=== PATIENT | female | born 1945 | race Caucasian/White ===

== ENCOUNTER 2018-12-04 23:22 | Emergency (ER) | payer MEDICARE, OTHER ==
--- NOTE | 2018-12-04 23:26 | ED Physician Documentation ---
History of Present Illness - Stated complaint Stated Complaint: SOA - History obtained from History obtained from: Patient - History of Present Illness Timing: Prior to arrival - Additonal information Additional information: Patient is a 73-year-old female with history of hypertension, CHF, and diabetes presenting with shortness of breath that began shortly prior to arrival while swimming with her family.Patient reports that she is compliant with all home medications except for her diuretics recently as she was traveling to [place] and did not want to take them while on vacation. Patient denies significant weight gain or fluid gain. Patient describes worsening shortness of breath over the last several days with initial dry cough that is now productive. Patient denies fever. Patient also denies chest pain, abdominal pain, urinary or stool changes, as well as vomiting.No other improving or worsening factors noted. Review of Systems Constitutional: denies: Fever Cardiac: denies: Chest pain / pressure Respiratory: reports: Dyspnea, Cough PD PAST MEDICAL HISTORY - Past Medical History Cardiovascular: Congestive heart failure Respiratory: Pneumonia Endocrine/Autoimmune: Type 1 diabetes - Past Surgical History Past Surgical History: Yes HEENT: Cataracts - Present Medications Home Medications: Ambulatory Orders Medication Instructions Recorded Confirmed Aspirin [Aspir 81] 81 mg PO DAILY 08/19/13 08/19/13 Carvedilol 0 mg PO BID 08/19/13 08/19/13 Insulin Glargine [Lantus] 16 unit SUBQ HS 08/19/13 08/19/13 Spironolactone [Aldactone] 0 mg PO DAILY 08/19/13 08/19/13 Tolterodine Tartrate [Detrol] 1 mg PO DAILY 08/19/13 08/19/13 glipiZIDE [Glucotrol] 0 mg PO 0730 08/19/13 08/19/13 - Allergies Allergies/Adverse Reactions: Allergies Allergy/AdvReac Type Severity Reaction Status Date / Time [id number]-[id number] Reductase Allergy Anaphylaxis Verified 12/04/18 23:31 Inhibitor Sulfa (Sulfonamide Allergy vomiting Verified 12/04/18 23:31 Antibiotics) - Social History Does the pt smoke?: No Smoking Status: Never smoker Does the pt drink ETOH?: No Does the pt have substance abuse?: No - POLST Patient has POLST: No PD ED PE NORMAL - Vitals Vital signs reviewed: Yes - General General: Alert and oriented X 3, No acute distress, Well developed/nourished - HEENT HEENT: Atraumatic - Cardiac Cardiac: RRR, No murmur - Respiratory Respiratory: No respiratory distress. No: Clear bilaterally (Crackles and rhonchorous throughout. No wheezing. Slightly short of breath when speaking, but otherwise unlabored. Able to speak in full sentences.) - Abdomen Abdomen: Soft, Non tender, Non distended - Derm Derm: Normal color, Warm and dry, No rash - Extremities Extremities: No deformity, No tenderness to palpate, No edema - Neuro Neuro: Alert and oriented X 3, No motor deficit, No sensory deficit - Psych Psych: Normal mood, Normal affect Results - Vitals Vitals: Vital Signs - 24 hr 12/04/18 12/04/18 12/05/18 23:28 23:39 00:02 Temperature 36.9 C Heart Rate 72 72 Respiratory 24 22 Rate Blood Pressure 174/77 H O2 Saturation 85 L 96 12/05/18 12/05/18 00:37 00:54 Temperature Heart Rate 56 L 54 L Respiratory 19 24 Rate Blood Pressure 120/77 O2 Saturation 98 95 Oxygen O2 Source Room air Oxygen Flow Rate 0 - EKG (time done) 2331 Rate: Rate (enter#) (66) Rhythm: NSR Intervals: Prolonged QT, LBBB Other comments: Other comments (PVCS) - Labs Labs: Laboratory Tests 12/04/18 12/04/18 12/04/18 23:30 23:30 23:30 WBC 10.6 RBC 4.83 Hgb 13.6 Hct 40.9 MCV 84.6 MCH 28.1 MCHC 33.3 RDW 13.3 Plt Count 311 MPV 8.7 Neut # (Auto) 5.8 Lymph # (Auto) 3.4 Pima # (Auto) 0.7 Eos # (Auto) 0.5 Baso # (Auto) 0.1 Absolute Nucleated RBC 0.01 Nucleated RBC % 0.1 Sodium 138 Potassium 3.7 Chloride 103 Carbon Dioxide 26 Anion Gap 9.0 BUN 21 H Creatinine 0.9 Estimated GFR (MDRD) 61 L Glucose 150 H Lactic Acid Calcium 8.8 Total Bilirubin 0.5 AST 26 ALT 23 Alkaline Phosphatase 50 Troponin I < 0.04 B-Natriuretic Peptide Total Protein 6.8 Albumin 3.8 Globulin 3.0 Albumin/Globulin Ratio 1.3 Lipase 25 12/04/18 12/05/18 23:45 00:06 WBC RBC Hgb Hct MCV MCH MCHC RDW Plt Count MPV Neut # (Auto) Lymph # (Auto) Pima # (Auto) Eos # (Auto) Baso # (Auto) Absolute Nucleated RBC Nucleated RBC % Sodium Potassium Chloride Carbon Dioxide Anion Gap BUN Creatinine Estimated GFR (MDRD) Glucose Lactic Acid 1.1 Calcium Total Bilirubin AST ALT Alkaline Phosphatase Troponin I B-Natriuretic Peptide 185 H Total Protein Albumin Globulin Albumin/Globulin Ratio Lipase PD MEDICAL DECISION MAKING - ED course Complexity details: reviewed results, re-evaluated patient, considered dusty gray, d/w patient, d/w family ED course: Most concerning for CHF exacerbation given Reported symptoms, hypoxia upon arrival, exam, noncompliance with diuretics, but also consider pneumonia particularly given report of productive cough although without fever, as well as ACS, myocardial infarction, unstable angina, PE, although feel much less likely given lack of chest pain. Do not feel patient requires aspirin or other medications at this time except for IV Lasix to address CHF exacerbation.Obtained chest x-ray which found evidence of mild pulmonary edema. Screening lab work and EKG also obtained. EKG Does reflect left bundle branch block and prolonged QT, but no other signs of acute ischemia. Troponin negative. Again, have low suspicion for cardiac etiology given patient's lack of chest complaints and pain. Other screening lab work returned within normal limits except for mild elevation of BNP, which again reflects likely CHF component.Patient urinated significant amounts while in the ED and had market improvement of shortness of breath. Patient was able to be titrated off of oxygen and remained in the mid 90s on room air. later clarified that patient has likely been off of diuretics for several weeks. Discussed results and recommendations with patient and family including ability to go home tonight but to reinstitute diuretics tomorrow, as well as strict return precautions, other supportive cares, and appropriate follow-up with primary care physician later this week. All voiced understanding and are comfortable with discharge pl an. Departure - Departure Disposition: Home, Self Care Clinical Impression: Congestive heart failure Qualifiers: Heart failure type: unspecified Heart failure chronicity: acute on chronic Qualified Code(s): I50.9 - Heart failure, unspecified Condition: Good Instructions: ED CHF General Follow-Up: your,doctor [Other] - Within 3 Days Comments: Please continue all home medications as previously instructed including furosemide. Please follow-up with your primary care physician in next 2 to 3 days and return to ED sooner if expands worsening symptoms or other concerns.
[2018-12-04] MEDS ORDERED: FUROSEMIDE 40 MG/4 ML VIAL IVP STA (23:44)
[2018-12-04 23:53] LABS: BASOPHILS # (AUTO) 0.1 10^3/uL (0.0-0.1); BASOPHILS % (AUTO) 1.2 %; EOSINOPHILS # (AUTO) 0.5 10^3/uL (0.0-0.7); EOSINOPHILS % (AUTO) 4.9 %; HGB - HEMOGLOBIN 13.6 g/dL (12.0-16.0); LYMPHOCYTES # (AUTO) 3.4 10^3/uL (1.5-3.5); LYMPHOCYTES % (AUTO) 32.2 %; MEAN CORPUSCULAR HEMOGLOBIN 28.1 pg (27.0-31.0); MEAN CORPUSCULAR HGB CONC 33.3 g/dL (32.0-36.0); MEAN CORPUSCULAR VOLUME 84.6 fL (81.0-99.0); MEAN PLATELET VOLUME 8.7 fL (7.9-10.8); MONOCYTES # (AUTO) 0.7 10^3/uL (0.0-1.0); MONOCYTES % (AUTO) 6.6 %; NEUTROPHILS # (AUTO) 5.8 10^3/uL (1.5-6.6); NEUTROPHILS % (AUTO) 55.1 %; PLT - PLATELET COUNT 311 10^3/uL (130-450); RED BLOOD COUNT 4.83 10^6/uL (4.20-5.40); RED CELL DISTRIBUTION WIDTH 13.3 % (12.0-15.0); WHITE BLOOD COUNT 10.6 x10^3/uL (4.8-10.8)
[2018-12-05 00:06] LABS: ALBUMIN 3.8 g/dL (3.2-5.5); ALBUMIN/GLOBULIN RATIO 1.3 (1.0-2.2); BILIRUBIN,TOTAL 0.5 mg/dL (0.2-1.0); CALCIUM 8.8 mg/dL (8.5-10.3); CREATININE 0.9 mg/dL (0.4-1.0); TOTAL PROTEIN 6.8 g/dL (6.7-8.2)
--- NOTE | 2018-12-05 00:10 | XRAY Report ---
Reason: chest pain Procedure Date: 12/04/2018 Accession Number: [id number] / [id number] Procedure: XR - Chest 1 View X-Ray CPT Code: 38476 FULL RESULT: EXAM: CHEST RADIOGRAPHY EXAM DATE: 12/04/2018 11:56 PM. CLINICAL HISTORY: Chest pain. COMPARISON: None. TECHNIQUE: 1 view. FINDINGS: Lungs/Pleura: Pulmonary venous distention with diffuse hazy lung opacities. No definite pleural effusion or pneumothorax. Mediastinum: Within exam limitations, the cardiomediastinal contour is normal. Other: None. IMPRESSION: Mild pulmonary edema. RADIA
[2018-12-05 01:03] VITALS: BP 133/52
== END 2018-12-05 01:14 | disposition home or self-care (01) ==
LOC: ED 23:22
DX: I11.0 Hypertensive heart disease with heart failure (principal); I50.1 Left ventricular failure, unspecified; R09.02 Hypoxemia; T50.1X6A Underdosing of loop [high-ceiling] diuretics, initial encounter; Z91.128 Patient's intentional underdosing of medication regimen for other reason; I49.3 Ventricular premature depolarization; I45.81 Long QT syndrome; I44.7 Left bundle-branch block, unspecified; E10.9 Type 1 diabetes mellitus without complications; Z79.4 Long term (current) use of insulin; Z79.82 Long term (current) use of aspirin
CPT/HCPCS: 36415; 71045; 80053; 83605; 83690; 83880; 84484; 85025; 87040; 93005; 96374; 99283; 99284

== ENCOUNTER 2019-09-25 16:46 | Outpatient (CLI) | payer MEDICARE, OTHER ==
--- NOTE | 2019-09-26 07:05 | Ultrasound Report ---
Reason: LEFT LEG PAIN Procedure Date: 09/25/2019 Accession Number: [id number] / [id number] Procedure: US - Duplex Ext Veins Left CPT Code: Final Report FULL RESULT: EXAM: LEFT LOWER EXTREMITY VENOUS ULTRASOUND EXAM DATE: 09/25/2019 05:10 PM. CLINICAL HISTORY: LEFT LEG PAIN. COMPARISON: None. TECHNIQUE: Real-time sonographic vascular imaging was performed by the merchant banker through the lower extremity utilizing both color-flow and Doppler spectral analysis. Multiple eligibility services representative static images were saved for review. FINDINGS: Common Femoral Vein (CFV): Normal. CFV-GSV Junction: Normal. Profunda Femoral Vein (PFV): Normal. Femoral Vein (FV) Prox: Normal. Femoral Vein (FV) Mid: Normal. Femoral Vein (FV) Dist: Normal. Popliteal Vein: Normal. Posterior Tibial Veins: Normal. Peroneal Veins: Normal. Contralateral Side CFV: Normal. Other: None. IMPRESSION: No evidence for deep venous thrombosis. RADIA
== END 2019-09-25 16:47 | disposition home or self-care (01) ==
LOC: DI 16:46
PROVIDERS: ATTEND Internal Medicine
DX: M79.605 Pain in left leg (principal)

== ENCOUNTER 2020-02-05 16:42 | Outpatient (CLI) | payer MEDICARE, OTHER ==
--- NOTE | 2020-02-05 17:52 | XRAY Report ---
PROCEDURE: Foot 3 View LT INDICATIONS: LT FOOT PAIN FROM FALL TECHNIQUE: 3 views of the foot were acquired. COMPARISON: None FINDINGS: Bones: No dislocations. No suspicious bony lesions. There is a diagonal mildly distorted and disp laced fracture involving the fifth metatarsal bone over its distal two thirds. Soft tissues: No tibiotalar joint effusion. Achilles tendon appears normal. IMPRESSION: Acute appearing fifth metatarsal diaphyseal fracture. Reviewed by: Ren Wong MD on 02/05/2020 5:50 PM PDT Approved by: Ren Wong MD on 02/05/2020 5:50 PM PDT Station ID: [id number]
--- NOTE | 2020-02-05 17:53 | XRAY Report ---
PROCEDURE: Mild osteoarthritic change, no trauma found. INDICATIONS: LT FOOT PAIN FROM FALL TECHNIQUE: 3 views of the ankle were acquired. COMPARISON: None FINDINGS: Bones: No fractures or dislocations. Ankle mortise is normally aligned. No suspicious bony lesions . Soft tissues: No tibiotalar joint effusion. Achilles tendon appears normal. IMPRESSION: Mild osteoarthritis, no trauma found. Reviewed by: Ren Wong MD on 02/05/2020 5:51 PM PDT Approved by: Ren Wong MD on 02/05/2020 5:51 PM PDT Station ID: [id number]
== END 2020-02-05 16:43 | disposition home or self-care (01) ==
LOC: DI 16:42
PROVIDERS: ATTEND Internal Medicine
DX: S92.352A Displaced fracture of fifth metatarsal bone, left foot, initial encounter for closed fracture (principal); M19.072 Primary osteoarthritis, left ankle and foot

== ENCOUNTER 2020-03-22 07:28 | Outpatient (CLI) | payer MEDICARE, OTHER ==
--- NOTE | 2020-03-22 15:50 | XRAY Report ---
PROCEDURE: Foot 3 View LT INDICATIONS: LEFT FOOT FRACTURE TECHNIQUE: 3 views of the foot were acquired. COMPARISON: Prior trauma plain films dated 02/05/2020 FINDINGS: Bones: No previously unidentified fractures or dislocations. No suspicious bony lesions. The long diagonal fracture through the fifth metatarsal diaphysis has healed distally and over its proximal as pect osseous union between the fracture plane is not established. Mild offset is associated with this partially united fracture. Soft tissues: No tibiotalar joint effusion. Achilles tendon appears normal. IMPRESSION: Fracture or malalignment but united at its distal half, the proximal half of the long diagonal diaphy seal fracture plane is not united. Moderate malalignment. Reviewed by: Ren Wong MD on 03/22/2020 3:49 PM PDT Approved by: Ren Wong MD on 03/22/2020 3:49 PM PDT Station ID: [id number]
== END 2020-03-22 07:29 | disposition home or self-care (01) ==
LOC: DI.WCP 07:28
PROVIDERS: ATTEND Physician Assistant
DX: S92.352G Displaced fracture of fifth metatarsal bone, left foot, subsequent encounter for fracture with delayed healing (principal)

== ENCOUNTER 2022-03-30 14:04 | Emergency (ER) | payer MEDICARE, OTHER ==
[2022-03-30 14:18] VITALS: BP 138/57
--- NOTE | 2022-03-30 15:31 | XRAY Report ---
PROCEDURE: Ankle 3 View RT INDICATIONS: Trauma TECHNIQUE: 3 views of the ankle were acquired. COMPARISON: None FINDINGS: Bones: No fractures or dislocations. Ankle mortise is normally aligned. No suspicious bony lesions . Soft tissues: No tibiotalar joint effusion. Achilles tendon appears normal. IMPRESSION: Intact right ankle. Reviewed by: Kimberly Chong MD on 03/30/2022 3:30 PM PDT Approved by: Kimberly Chong MD on 03/30/2022 3:30 PM PDT Station ID: [id number]
--- NOTE | 2022-03-30 15:32 | XRAY Report ---
PROCEDURE: Knee 4 View RT INDICATIONS: Trauma TECHNIQUE: 4 views of the right knee(s) were acquired. COMPARISON: None. FINDINGS: Bones: No fractures or dislocations. Mild medial compartment joint space loss. No suspicious bony l esions. Soft tissues: No joint effusion. No suspicious soft tissue calcifications. IMPRESSION: Intact right knee. Reviewed by: Kimberly Chong MD on 03/30/2022 3:31 PM PDT Approved by: Kimberly Chong MD on 03/30/2022 3:31 PM PDT Station ID: [id number]
--- NOTE | 2022-03-30 16:44 | ED Physician Documentation ---
History of Present Illness - Stated complaint Stated Complaint: RT LEG PX - Chief complaint Chief Complaint: Trauma Ext - Additonal information Additional information: Patient is 76-year-old female presenting to the emergency department with right low back and right leg pain. Reports pain ongoing for greater than 1 week. has had multiple falls at home where her "leg goes out on me". Reports shooting pain down her back and up her leg. Reports that she is uncertain whether or not she may have hit her head on any of her previous falls. is only recently begun using a cane to help with her ambulation. Denies anticoagulating medications but does report is on a regular aspirin. Denies any history of blood clots, recent travel, long periods of immobility. Reports contacted her primary care doctor's office today and was told by one of the nursing staff to come to the emergency department. Reports using Motrin at home with minimal symptomatic relief. Denies any fever, chills, chest pain, heart palpitations, shortness of breath, abdominal pain, nausea, vomiting, diarrhea, constipation. Review of Systems Ten Systems: 10 systems reviewed and negative Constitutional: denies: Fever Eyes: denies: Loss of vision Ears: denies: Loss of hearing Nose: denies: Rhinorrhea / runny nose Throat: denies: Dental pain / toothache Cardiac: denies: Chest pain / pressure Respiratory: denies: Dyspnea GI: denies: Abdominal Pain : denies: Dysuria Musculoskeletal: reports: Back pain PD PAST MEDICAL HISTORY - Past Medical History Cardiovascular: Congestive heart failure Respiratory: Pneumonia Endocrine/Autoimmune: Type 1 diabetes GI: None CRIMPER OPERATOR: None : None Psych: None Musculoskeletal: None - Past Surgical History Past Surgical History: Yes HEENT: Cataracts - Present Medications Home Medications: Ambulatory Orders Medication Instructions Recorded Confirmed Aspirin [Aspir 81] 81 mg PO DAILY 08/19/13 08/19/13 Insulin Glargine [Lantus] 16 unit SUBQ HS 08/19/13 08/19/13 Spironolactone [Aldactone] 0 mg PO DAILY 08/19/13 08/19/13 Tolterodine Tartrate [Detrol] 1 mg PO DAILY 08/19/13 08/19/13 carvediloL [Carvedilol] 0 mg PO BID 08/19/13 08/19/13 glipiZIDE [Glucotrol] 0 mg PO 0730 08/19/13 08/19/13 Acetaminophen [Pain Relief] 650 mg PO Q8HR #30 tab 03/30/22 Lidocaine Patch 5% [Lidoderm Patch] 1 patch TOP DAILY PRN #10 patch 03/30/22 - Allergies Allergies/Adverse Reactions: Allergies Allergy/AdvReac Type Severity Reaction Status Date / Time [id number]-EZZ-QhK Reductase Allergy Anaphylaxis Verified 03/30/22 14:18 Inhibitor [Vnkbwby-Ebq-Epk Reductase Inhibitor] Sulfa (Sulfonamide Allergy vomiting Verified 03/30/22 14:18 Antibiotics) - Social History Does the pt smoke?: No Smoking Status: Never smoker Does the pt drink ETOH?: No Does the pt have substance abuse?: No - Immunizations Immunizations are current?: Yes - POLST Patient has POLST: No PD ED PE NORMAL - Vitals Vital signs reviewed: Yes - General General: Alert and oriented X 3, No acute distress, Well developed/nourished - HEENT HEENT: Atraumatic, PERRL, EOMI, Ears normal, Moist mucous membranes - Neck Neck: Supple, no meningeal sign - Cardiac Cardiac: RRR, No gallop, Strong equal pulses - Respiratory Respiratory: No respiratory distress - Abdomen Abdomen: Normal bowel sounds, Non tender - Back Back: No CVA TTP, No spinal TTP - Derm Derm: Normal color - Extremities Extremities: No deformity, Other (Patient reports some generalized pain and swelling around her right ankle. Also endorses for pain and tenderness at the knee and hip.) Results - Vitals Vitals: Vital Signs - 24 hr 03/30/22 14:13 Temperature 36.4 C L Heart Rate 66 Respiratory 18 Rate Blood Pressure 138/57 H O2 Saturation 99 Oxygen O2 Source Room air PD MEDICAL DECISION MAKING - ED course Complexity details: reviewed results, d/w patient ED course: Patient 76-year-old female presenting to the emergency department with low back pain, right leg pain as well as frequent falls due to her right leg "going out from under me". CT head nonacute. X-rays of the knee and ankle nonacute. Patient did have some soft tissue swelling and tenderness to the knee and ankle. Additionally had some right low paraspinal back muscle tenderness. No point tenderness to the spine itself was appreciated on exam. Patient had normal strength and normal reflexes in her lower extremities. Was given acetaminophen and a Lidoderm patch here in the emergency department. Offered walker which she declined. Ankle-brachial index was obtained which was Right side 1.2, left side 1.37. Patient has low risk for lower extremity blood clot and overall her symptoms are far more consistent with sciatica, possibly secondary to lower back degenerative disc disease. At this time will discharge for follow-up with primary care. Patient instructed in the use of both acetaminophen, ibuprofen and Lidoderm patches for pain control. Otherwise clear return precautions and follow-up instructions given prior to discharge. Departure - Departure Disposition: 01 Home, Self Care Clinical Impression: Ankle injury, Knee injury, Lower back pain, Falls frequently Prescriptions: Acetaminophen [Pain Relief] 650 mg PO Q8HR #30 tab Lidocaine Patch 5% [Lidoderm Patch] 1 patch TOP DAILY PRN #10 patch PRN Reason: pain
[2022-03-30] MEDS ORDERED: ACETAMINOPHEN 325 MG TABLET PO STA (17:04)
[2022-03-30] MEDS ORDERED: LIDOCAINE PATCH 5% TOP STA (17:04)
--- NOTE | 2022-03-30 17:48 | CT Report ---
PROCEDURE: HEAD WO INDICATIONS: Falls TECHNIQUE: Noncontrast 4.5 mm thick angled axial sections acquired from the foramen magnum to the vertex. For r adiation dose reduction, the following was used: automated exposure control, adjustment of mA and/or kV according to patient size. COMPARISON: None. FINDINGS: Image quality: Excellent. CSF spaces: Basal cisterns are patent. No extra-axial fluid collections. Ventricles are normal in size and shape. Brain: No midline shift. No intracranial masses or hemorrhage. No area of hypodensity in a vascula r distribution to suggest acute infarction. 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 Age-related parenchymal loss. Skull and face: Calvarium and visualized facial bones are intact, without suspicious lesions. Sinuses: Visualized sinuses and mastoids are clear. IMPRESSION: No acute intracranial abnormality. Reviewed by: Dieudonne Manjarrez MD on 03/30/2022 5:46 PM PDT Approved by: Dieudonne Manjarrez MD on 03/30/2022 5:46 PM PDT Station ID: [id number]
== END 2022-03-30 18:17 | disposition home or self-care (01) ==
LOC: ED 14:04
DX: S99.911A Unspecified injury of right ankle, initial encounter (principal); S89.92XA Unspecified injury of left lower leg, initial encounter; W19.XXXA Unspecified fall, initial encounter; M54.50 Low back pain, unspecified; E10.9 Type 1 diabetes mellitus without complications; Z79.4 Long term (current) use of insulin; Z91.81 History of falling
CPT/HCPCS: 70450; 73564; 73610; 99282; 99284; A9270

== ENCOUNTER 2024-10-09 11:32 | Inpatient (IN) ==
--- NOTE | 2024-10-09 11:58 | ED Physician Documentation ---
History of Present Illness Stated complaint Stated Complaint: SYNCOPE/LAC Chief complaint Chief Complaint: Neuro History obtained from History obtained from: Patient History of Present Illness Timing: Prior to arrival Additonal information Additional information: Patient is a 78-year-old female with past medical history of CHF presenting to the emergency department after a syncopal episode she notes she was playing a great groceries when she fell backwards and hit her head. Patient believes she lost consciousness and called the ambulance. Patient had no chest pain or shortness of breath she notes she has been feeling very dizzy recently and has here about 3 days ago for similar symptoms. She had a stable workup at that time with slightly elevated high sensitivity troponin and was discharged home. She notes her insulin had been discontinued recently and she has been feeling dizzy and off with this medication being discontinued. She feels she has had some recurrent falls while at home. She has no nausea or vomiting today she had sustained a laceration to her head from her fall and has some pain to her right shoulder and right leg after her injury. Her heard her fall while she was putting groceries away. In the room patient is ANO x 3 she seems to be answering questions appropriately but occasionally seems to be slurring her words. Patient is not on blood thinners, unsure how long patient was passed out for. No previous history of stroke unsure of pateint's baseline as she presents independently to the ED. [place] Coma Scale Assess Eye opening: Spontaneous Verbal response: Oriented Motor response: Obeys Commands Total score: 15 Meds/Allgy Home Medications Ambulatory Orders Medication Instructions Recorded Confirmed aspirin 81 mg tablet,delayed 81 mg PO DAILY 08/19/13 08/19/13 release (Aspir-) carvedilol 3.125 mg tablet 0 mg PO BID 08/19/13 08/19/13 glipizide 5 mg tablet 0 mg PO 0730 08/19/13 08/19/13 insulin glargine 100 unit/mL 16 unit subcut HS 08/19/13 08/19/13 subcutaneous solution (Lantus U-100 Insulin) spironolactone 25 mg tablet 0 mg PO DAILY 08/19/13 08/19/13 tolterodine 1 mg tablet (Detrol) 1 mg PO DAILY 08/19/13 08/19/13 acetaminophen 650 mg 650 mg PO Q8HR #30 tabs 03/30/22 tablet,extended release (Pain Relief (acetaminophen)) lidocaine 5 % topical patch 1 patch topical DAILY PRN pain #10 03/30/22 patches Allergies Allergies Allergy/AdvReac Type Severity Reaction Status Date / Time Ycpqmyf-DYN-PuN Reductase Allergy Anaphylaxis Verified 10/06/24 14:55 Inhibitor (Cpqpmxa-Rye-Sce Reductase Inhibitor) Sulfa (Sulfonamide Allergy vomiting Verified 10/06/24 14:55 Antibiotics) PFSH Active Problems All Active Problems (Updated 10/09/24 @ 19:20 by Annabella Diamond PA-C) Laceration (Acute) Head injury (Acute) Syncope (Acute) Congestive heart failure (Acute) Social History Social History Smoking Status: Never smoker Relationship: Do you feel safe in your home environment?: Yes Suffered physical, verbal, emotional, or financial abuse?: No History of Abuse: No POLST Patient has POLST: No Exam Constitutional no apparent distress Patient does appear to be slurring her words she is A & O x 3 but unsure of her baseline in speech, no history of HENMT Laceration noted to left eyebrow no significant swelling mild bleeding in place Eyes PERRL, EOMs intact bilaterally and conjunctivae normal Neck/C-Spine visual inspection normal Lymph no lymphadenopathy noted Chest inspection of chest normal and palpation of chest normal Respiratory breath sounds equal bilaterally, normal respiratory effort and clear to auscult ation bilaterally Results Vitals Vitals: Vital Signs - 24 hr 10/09/24 11:33 10/09/24 11:39 10/09/24 13:39 Temperature 36.7 C Temperature Source Oral Pulse Rate 88 59 L Respiratory Rate 16 13 20 Blood Pressure 153/98 H 142/90 H O2 Saturation 100 97 99 O2 Source Room air Room air Pain Intensity 8 10/09/24 15:00 10/09/24 16:33 10/09/24 18:27 Temperature Temperature Source Pulse Rate 60 60 61 Respiratory Rate 17 16 15 Blood Pressure 162/93 H 147/71 H 172/83 H O2 Saturation 98 97 95 O2 Source Room air Room air Room air Pain Intensity 0 10/09/24 20:41 10/09/24 21:05 Temperature Temperature Source Pulse Rate 67 61 Respiratory Rate 16 16 Blood Pressure 165/114 H 132/74 H O2 Saturation 96 93 O2 Source Room air Room air Pain Intensity Oxygen O2 Source Room air Labs Labs: Laboratory Tests 10/09/24 10/09/2410/09/25 11:55 14:14 16:34 WBC 7.5 RBC 4.47 Hgb 12.8 Hct 39.7 MCV 88.8 MCH 28.6 MCHC 32.2 RDW 13.2 Plt Count 229 MPV 9.8 Neut # (Auto) 4.9 Lymph # (Auto) 1.7 [place] # (Auto) 0.6 Eos # (Auto) 0.2 Baso # (Auto) 0.0 Absolute Nucleated RBC 0.00 Nucleated RBC % 0.0 PT 13.3 H INR 1.2 Sodium 142 Potassium 3.8 Chloride 110 Carbon Dioxide 26 Anion Gap 6.0 BUN 14 Creatinine 0.8 Estimated GFR (MDRD) 69 L Glucose 195 H Calcium 9.3 Magnesium 1.8 Total Bilirubin 0.5 AST 15 ALT 10 Alkaline Phosphatase 40 L Troponin I High Sens 141.4 H* 146.0 H* 152.4 H* B-Natriuretic Peptide 616 H Total Protein 6.6 Albumin 4.0 Globulin 2.6 Albumin/Globulin Ratio 1.5 Urine Color Urine Clarity Urine pH Ur Specific [place] Urine Protein Urine Glucose (UA) Urine Ketones Urine Occult Blood Urine Nitrite Urine Bilirubin Urine Urobilinogen Ur Leukocyte Esterase Urine RBC Urine WBC Ur Squamous Epith Cells Urine Crystals Urine Bacteria Ur Microscopic Review Urine Culture Comments Urine Opiates Screen Ur Buprenorphine Scrn Ur Oxycodone Screen Urine Methadone Screen Ur Barbiturates Screen Ur Tricyclics Screen Ur Phencyclidine Scrn Ur Amphetamine Screen U Methamphetamines Scrn U Benzodiazepines Scrn Urine Cocaine Screen U Cannabinoids Screen Ur Drug Screen Comment Ethyl Alcohol < 10.0 10/09/24 20:22 WBC RBC Hgb Hct MCV MCH MCHC RDW Plt Count MPV Neut # (Auto) Lymph # (Auto) [place] # (Auto) Eos # (Auto) Baso # (Auto) Absolute Nucleated RBC Nucleated RBC % PT INR Sodium Potassium Chloride Carbon Dioxide Anion Gap BUN Creatinine Estimated GFR (MDRD) Glucose Calcium Magnesium Total Bilirubin AST ALT Alkaline Phosphatase Troponin I High Sens B-Natriuretic Peptide Total Protein Albumin Globulin Albumin/Globulin Ratio Urine Color YELLOW Urine Clarity CLOUDY Urine pH 8.5 H Ur Specific [place] 1.020 Urine Protein NEGATIVE Urine Glucose (UA) NEGATIVE Urine Ketones NEGATIVE Urine Occult Blood NEGATIVE Urine Nitrite NEGATIVE Urine Bilirubin NEGATIVE Urine Urobilinogen 1 (NORMAL) Ur Leukocyte Esterase NEGATIVE Urine RBC None Seen Urine WBC 0-3 Ur Squamous Epith Cells NONE SEEN Urine Crystals >50 Triple Phos Urine Bacteria None Seen Ur Microscopic Review INDICATED Urine Culture Comments NOT INDICATED Urine Opiates Screen NEGATIVE Ur Buprenorphine Scrn NEGATIVE Ur Oxycodone Screen NEGATIVE Urine Methadone Screen NEGATIVE Ur Barbiturates Screen NEGATIVE Ur Tricyclics Screen NEGATIVE Ur Phencyclidine Scrn NEGATIVE Ur Amphetamine Screen NEGATIVE U Methamphetamines Scrn NEGATIVE U Benzodiazepines Scrn NEGATIVE Urine Cocaine Screen NEGATIVE U Cannabinoids Screen NEGATIVE Ur Drug Screen Comment CUTOFF CONC BELOW: Ethyl Alcohol Rads (name of study) CT pelvis: Interpretation: No displaced fracture. Simple appearing right ovarian cyst measuring 1.8 cm. Recommend dedicated outpatient ultrasound, per consensus guidelines. Colonic diverticulosis without evidence of diverticulitis. PD Medical Decision Making ED course Complexity details: reviewed old records and reviewed results ED course: Patient 78-year-old female presents after syncopal episode while putting away groceries today she describes no syncopal or presyncopal symptoms prior to this she notes over the last few days she has been feeling very dizzy and falling recently. She has some increased shortness of breath as well and was seen a few days ago with acute CHF exacerbation she was discharged home to follow-up with cardiology in the outpatient setting she notes no improvement in her symptoms recently. Vitals are stable on arrival on physical exam patient appears to be slurring her words blood sugars stable here in the ED she is following commands no focal deficit appreciated on arrival. CT head shows no acute intracranial findings. PatientHad stable findings of her right shoulder and her right hip showed Possible irregularity of the pubic ring. CT cervical spine was cleared here in the ED and chest x-ray shows no acute findings at this time. CBC is unremarkable and CMP is negative magnesium within normal range and troponin slightly elevated here in the ED this is no significant change from 3 days ago. Patient continues to have left bundle branch block but this does appear new within the last 3 days as well. She denies any chest pain at this time and holding off on blood thinners at this time.Troponins being trended here in the ED. Drug screen is negative UA shows no signs of UTI.Troponins trended every 2 hours here in the ED starting at 141 then 1 46-1 52 all within 6 hours. Patient continues to deny any chest pain. She did sustain a laceration to her forehead that was repaired here in the ED see procedure note above she has persistent slurring of her words but remains ANO x 3 MRI of the brain obtained here in the ED showing no acute ischemia. I did discuss with on-call hospitalist Luis Angel MACHADO who came down to evaluate patient. Luis Angel MACHADO had concerns for cardiac syncope and history of CHF. Unsure of patient's previous EF and patient is unaware of her baseline history. We are requesting records from [facility] but did discuss with on-call cardiology at [facility] Dr. Mathis who feels patient is safe for admission here for echo and further workup as long as she has an EF greater than 35% at baseline.Currently pending records request from .. Discharge Plan Discharge Patient Disposition: 66 [facility] DC/Xfer Condition: Stable Clinical Impression: Syncope, Head injury, Laceration Prescriptions: No Action insulin glargine [Lantus U-100 Insulin] 100 UNIT/1 ML solution 16 unit subcut HS tolterodine [Detrol] 1 MG tablet 1 mg PO DAILY spironolactone 25 MG tablet 0 mg PO DAILY Patient Comments: unknown dose carvedilol 3.125 MG tablet 0 mg PO BID Patient Comments: does not know dose glipizide 5 MG tablet 0 mg PO 0730 Patient Comments: does not know dose aspirin [Aspir-81] 81 MG tablet,delayed release (DR/EC) 81 mg PO DAILY acetaminophen [Pain Relief (acetaminophen)] 650 MG tablet extended release 650 mg PO Q8HR Qty: 30 0RF lidocaine 1 PATCH adhesive patch,medicated 1 patch topical DAILY PRN (Reason: pain) Qty: 10 0RF Rx Instructions: apply to affected area for 12 hours and then off for 12 hours. Print Language: Indonesian
[2024-10-09 12:01] LABS: BASOPHILS % (AUTO) 0.5 %; EOSINOPHILS # (AUTO) 0.2 10^3/uL (0.0-0.7); EOSINOPHILS % (AUTO) 2.4 %; HCT - HEMATOCRIT 39.7 % (37.0-47.0); HGB - HEMOGLOBIN 12.8 g/dL (12.0-16.0); LYMPHOCYTES # (AUTO) 1.7 10^3/uL (1.5-3.5); LYMPHOCYTES % (AUTO) 22.7 %; MEAN CORPUSCULAR HEMOGLOBIN 28.6 pg (27.0-31.0); MEAN CORPUSCULAR HGB CONC 32.2 g/dL (32.0-36.0); MEAN CORPUSCULAR VOLUME 88.8 fL (81.0-99.0); MEAN PLATELET VOLUME 9.8 fL (7.9-10.8); MONOCYTES # (AUTO) 0.6 10^3/uL (0.0-1.0); MONOCYTES % (AUTO) 8.1 %; NEUTROPHILS # (AUTO) 4.9 10^3/uL (1.5-6.6); PLT - PLATELET COUNT 229 10^3/uL (130-450); RED BLOOD COUNT 4.47 10^6/uL (4.20-5.40); RED CELL DISTRIBUTION WIDTH 13.2 % (12.0-15.0); WHITE BLOOD COUNT 7.5 x10^3/uL (4.8-10.8)
[2024-10-09 12:10] LABS: INR 1.2 (0.8-1.2); PT - PROTHROMBIN TIME 13.3 secs (9.9-12.6)
[2024-10-09 12:23] LABS: MAGNESIUM 1.8 mg/dL (1.7-2.3)
[2024-10-09 12:25] LABS: TROPONIN I HIGH SENSITIVITY 141.4 ng/L (2.3-14.8)
--- NOTE | 2024-10-09 12:28 | XRAY Report ---
PROCEDURE: XR Chest 1V INDICATIONS: syncope TECHNIQUE: One view of the chest was acquired. COMPARISON: 10/06/2024 FINDINGS AND IMPRESSION: Mild opacities seen in the left costophrenic angle possibly early airspace disease versus atelectasis . No pleural effusions. Consider future imaging surveillance to assess for resolution. Heart size is at the upper limit of normal, unchanged. Degenerative osseous findings. Reviewed by: Jatinder Chacon MD on 10/09/2024 12:27 PM PDT Approved by: Jatinder Chacon MD on 10/09/2024 12:27 PM PDT Station ID: [id number]
[2024-10-09 12:29] LABS: ALBUMIN/GLOBULIN RATIO 1.5 (1.0-2.2); ALKALINE PHOSPHATASE 40 IU/L (42-121); ALT ALANINE AMINOTRANSFERASE 10 IU/L (10-60); AST ASPARTATE AMINOTRANSFERASE 15 IU/L (10-42); BILIRUBIN,TOTAL 0.5 mg/dL (0.2-1.0); BUN - BLOOD UREA NITROGEN 14 mg/dL (6-20); CALCIUM 9.3 mg/dL (8.5-10.3); CARBON DIOXIDE - CO2 26 mmol/L (21-32); CHLORIDE 110 mmol/L (101-111); CREATININE 0.8 mg/dL (0.6-1.3); ETOH - ETHANOL < 10.0 mg/dL; GFR - MDRD 69 (>89); GLUCOSE 195 mg/dL (74-104); POTASSIUM 3.8 mmol/L (3.5-4.5); SODIUM 142 mmol/L (135-145); TOTAL PROTEIN 6.6 g/dL (6.4-8.9)
--- NOTE | 2024-10-09 12:30 | XRAY Report ---
PROCEDURE: XR Shoulder 2+V LT INDICATIONS: left shoulder pain TECHNIQUE: 3 views of the shoulder were acquired. COMPARISON: None. FINDINGS AND IMPRESSION: No displaced fracture or dislocation. Mild glenohumeral and acromioclavicular arthrosis. No suspicious soft tissue calcifications. If there is high concern for further derangement, consider MRI evaluation. Reviewed by: Jatinder Chacon MD on 10/09/2024 12:28 PM PDT Approved by: Jatinder Chacon MD on 10/09/2024 12:28 PM PDT Station ID: [id number]
--- NOTE | 2024-10-09 12:33 | XRAY Report ---
PROCEDURE: XR Hip w/Pelvis 2-3V LT INDICATIONS: left hip pain after fall TECHNIQUE: 3 views of the hip were acquired. COMPARISON: None. FINDINGS AND IMPRESSION: Mild to moderate bilateral hip arthrosis. No definite displaced femoral neck fracture, however there is mild irregularity of the left pubic ring. Consider CT to further evaluate. No suspicious soft tissue calcifications. Reviewed by: Jatinder Chacon MD on 10/09/2024 12:31 PM PDT Approved by: Jatinder Chacon MD on 10/09/2024 12:31 PM PDT Station ID: [id number]
--- NOTE | 2024-10-09 13:09 | CT Report ---
PROCEDURE: CT Head WO INDICATIONS: head injury fall TECHNIQUE: Noncontrast 4.5 mm thick angled axial sections acquired from the foramen magnum to the vertex. For r adiation dose reduction, the following was used: automated exposure control, adjustment of mA and/or kV according to patient size. COMPARISON: 03/30/2022 FINDINGS: Image quality: Excellent. CSF spaces: Basal cisterns are patent. No extra-axial fluid collections. Ventricles are normal in size and shape. Brain: No midline shift. No intracranial masses or hemorrhage. Kay-white matter interface is norm al. Age-related global volume loss and chronic microvascular ischemic changes. Intracranial atherosc lerotic vascular calcifications. Skull and face: Calvarium and visualized facial bones are intact, without suspicious lesions. Sinuses: Visualized sinuses and mastoids are clear. IMPRESSION: No acute intracranial pathology. Reviewed by: Sebastián Greene MD on 10/09/2024 1:08 PM PDT Approved by: Sebastián Greene MD on 10/09/2024 1:08 PM PDT Station ID: [id number]
--- NOTE | 2024-10-09 13:14 | CT Report ---
PROCEDURE: CT Cervical Spine WO INDICATIONS: fall TECHNIQUE: Noncontrast 3 mm thick sections acquired from the skull base to the T4 level. Sagittal and coronal r eformats were then constructed. For radiation dose reduction, the following was used: automated exp osure control, adjustment of mA and/or kV according to patient size. COMPARISON: None. FINDINGS: Image quality: Excellent. Bones: No fractures or dislocations. Multilevel degenerative changes of the cervical spine. Visuali zed superior ribs are intact. Soft tissues: Mass which appears to be arising from the right thyroid lobe measuring 3.5 x 2.4 cm ex tending posteriorly and inferiorly into the mediastinum. Prevertebral soft tissues are normal in thic kness. No paravertebral hematomas. No apical pneumothoraces. IMPRESSION: 1.No acute, displaced fracture or traumatic subluxation. 2.Mass which appears to be arising from the right thyroid lobe measuring up to 3.5 cm. Recommend nonu rgent thyroid ultrasound for further evaluation. Reviewed by: Sebastián Greene MD on 10/09/2024 1:12 PM PDT Approved by: Sebastián Greene MD on 10/09/2024 1:12 PM PDT Station ID: [id number]
--- OUTSIDE RECORDS SUMMARY | 2024-10-09 13:21 | EXTERNAL MEDICAL SUMMARY RPT | Continuity of Care Document ---
Author Organization [facility] Address [address] [place] [id number] Phone Results/Labs test date facility value unit notes Result panel 1 NUCLEATED RED BLOOD CELLS AUTO 2024-10-06 15:15 [facility] 0.0 /100wbc (missing) NRBC ABSOLUTE COUNT (AUTO) 2024-10-06 15:15 [facility] 0.00 x10 3/ul (missing) BASOPHILS # (AUTO) 2024-10-06 15:15 [facility] 0.1 10 3/ul (missing) EOSINOPHILS # (AUTO) 2024-10-06 15:15 [facility] 0.2 10 3/ul (missing) MONOCYTES # (AUTO) 2024-10-06 15:15 [facility] 0.5 10 3/ul (missing) BILIRUBIN,TOTAL 2024-10-06 15:15 [facility] 0.7 mg/dl As of January 2023 testing method has changed, this may include reference ranges. CREATININE 2024-10-06 15:15 [facility] 0.8 mg/dl As of January 2023 testing method has changed, this may include reference ranges. ALBUMIN/GLOBULIN RATIO 2024-10-06 15:15 [facility] 1.5 (missing) (missing) ALT ALANINE AMINOTRANSFERASE 2024-10-06 15:15 [facility] 10 iu/l As of January 2023 testing method has changed, this may include reference ranges. CHLORIDE 2024-10-06 15:15 [facility] 109 mmol/l As of January 2023 testing method has changed, this may include reference ranges. RED CELL DISTRIBUTION WIDTH 2024-10-06 15:15 [facility] 13.2 % (missing) HGB - HEMOGLOBIN 2024-10-06 15:15 [facility] 14.1 g/dl (missing) SODIUM 2024-10-06 15:15 [facility] 140 mmol/l As of January 2023 testing method has changed, this may include reference ranges. TROPONIN I HIGH SENSITIVITY 2024-10-06 15:15 [facility] 143.8 ng/l Critical result [facility] 143.8 pg/mL called to and read back by ED/LYDIA Nicholas RN at 06-Oct-2024 15:44 by aylin. A HIGH SENSITIVITY TROPONIN result of >= 14.9 ng/L for females is considered POSITIVE. A HIGH SENSITIVITY TROPONIN result of >= 19.8 ng/L for males is considered POSITIVE. A HIGH SENSITIVITY TROPONIN result of >= 17.9 ng/L for unspecified is considered POSITIVE. GLUCOSE 2024-10-06 15:15 [facility] 150 mg/dl As of January 2023 testing method has changed, this may include reference ranges. AST ASPARTATE AMINOTRANSFERASE 2024-10-06 15:15 [facility] 16 iu/l As of January 2023 testing method has changed, this may include reference ranges. BUN - BLOOD UREA NITROGEN 2024-10-06 15:15 [facility] 16 mg/dl As of January 2023 testing method has changed, this may include reference ranges. LYMPHOCYTES # (AUTO) 2024-10-06 15:15 [facility] 2.0 10 3/ul (missing) GLOBULIN 2024-10-06 15:15 [facility] 2.8 g/dl (missing) CARBON DIOXIDE - CO2 2024-10-06 15:15 [facility] 24 mmol/l As of January 2023 testing method has changed, this may include reference ranges. PLT - PLATELET COUNT 2024-10-06 15:15 [facility] 250 10 3/ul (missing) MEAN CORPUSCULAR HEMOGLOBIN 2024-10-06 15:15 [facility] 28.7 pg (missing) POTASSIUM 2024-10-06 15:15 [facility] 3.4 mmol/l As of January 2023 testing method has changed, this may include reference ranges. NEUTROPHILS # (AUTO) 2024-10-06 15:15 [facility] 3.6 10 3/ul (missing) MEAN CORPUSCULAR HGB CONC 2024-10-06 15:15 [facility] 33.2 g/dl (missing) ALKALINE PHOSPHATASE 2024-10-06 15:15 [facility] 38 iu/l As of January 2023 testing method has changed, this may include reference ranges. ALBUMIN 2024-10-06 15:15 [facility] 4.1 g/dl As of January 2023 testing method has changed, this may include reference ranges. RED BLOOD COUNT 2024-10-06 15:15 [facility] 4.91 10 6/ul (missing) HCT - HEMATOCRIT 2024-10-06 15:15 [facility] 42.5 % (missing) BNP - B-NATRIURETIC PEPTIDE 2024-10-06 15:15 [facility] 464 pg/ml (missing) WHITE BLOOD COUNT 2024-10-06 15:15 [facility] 6.4 x10 3/ul (missing) TOTAL PROTEIN 2024-10-06 15:15 [facility] 6.9 g/dl As of January 2023 testing method has changed, this may include reference ranges. GFR - MDRD 2024-10-06 15:15 [facility] 69 (missing) Social History date description facility
[2024-10-09] MEDS: lidocaine 1% 20 ML MDV SUBQ ONE (14:13)
--- NOTE | 2024-10-09 14:48 | CT Report ---
PROCEDURE: CT Pelvis WO INDICATIONS: possible pelvic ring fracture TECHNIQUE: Noncontrast 3 mm axial sections acquired through the bony pelvis, with coronal and sagittal reformatt ing. For radiation dose reduction, the following was used: automated exposure control, adjustment of mA and/or kV according to patient size. COMPARISON: Same day x-ray. FINDINGS: Image quality: Excellent. Bones: No displaced fracture. Mild bilateral hip osteoarthritis, right greater than left. Soft tissues: Colonic diverticulosis without evidence of diverticulitis. No extraperitoneal fluid co llection or significant joint effusion. Right ovarian cyst with simple appearance measuring 1.8 cm. IMPRESSION: No displaced fracture. Simple appearing right ovarian cyst measuring 1.8 cm. Recommend dedicated outpatient ultrasound, per consensus guidelines. Colonic diverticulosis without evidence of diverticulitis. Reviewed by: Pedro Moses MD on 10/09/2024 2:47 PM PDT Approved by: Pedro Moses MD on 10/09/2024 2:47 PM PDT Station ID: [id number]
--- NOTE | 2024-10-09 18:38 | MRI Report ---
PROCEDURE: MRI Brain WO INDICATIONS: stroke work up TECHNIQUE: Noncontrast axial T1 spin echo, axial T2 fast spin echo, sagittal and axial FLAIR, coronal T2 fast sp in echo, axial gradient echo, axial diffusion and ADC through the brain. COMPARISON: CT of brain from the same day. FINDINGS: Image quality: Excellent. CSF Spaces: Basal cisterns are patent. No extra-axial fluid collections. Ventricles are normal in size and shape. Brain: No intracranial masses or hemorrhage. Kay/white matter interface is normal. Brainstem appe ars normal. Age-related volume loss is seen. Diffusion-weighted images demonstrate no acute ischemic insult. Periventricular and deep white matter T2 and FLAIR hyperintense signal is seen. Normal intra vascular flow voids are present. Skull and face: Calvarium has normal marrow signal. Orbits appear normal. Sinuses: Sinuses and mastoids are clear. IMPRESSION: 1. No acute infarction. No acute intracranial bleed, midline shift or mass effect. 2. Age-related volume loss and mild to moderate white matter small vessel chronic ischemic changes. Reviewed by: Demetris Mathis MD on 10/09/2024 6:37 PM PDT Approved by: Demetris Mathis MD on 10/09/2024 6:37 PM PDT Station ID: [id number]
[2024-10-09 20:35] LABS: BILIRUBIN,URINE NEGATIVE (NEGATIVE); GLUCOSE, URINE (UA) NEGATIVE (NEGATIVE); KETONES,URINE (UA) NEGATIVE (NEGATIVE); LEUKOCYTE ESTERASE, URINE NEGATIVE (NEGATIVE); NITRITE,URINE NEGATIVE (NEGATIVE); OCCULT BLOOD,URINE NEGATIVE (NEGATIVE); PH,URINE 8.5 PH (5.0-7.5); PROTEIN,URINE NEGATIVE (NEGATIVE); UROBILINOGEN,URINE 1 (NORMAL) E.U./dL (NORMAL)
[2024-10-09 20:38] LABS: CLARITY,URINE CLOUDY (CLEAR)
[2024-10-09 20:50] LABS: AMPHETAMINE SCREEN,URINE NEGATIVE (NEGATIVE); BACTERIA,URINE None Seen /HPF (None Seen); BARBITURATE SCREEN,UR NEGATIVE (NEGATIVE); BENZODIAZEPINES SCREEN, URINE NEGATIVE (NEGATIVE); BUPRENORPHINE SCREEN, URINE NEGATIVE (NEGATIVE); COCAINE SCREEN URINE NEGATIVE (NEGATIVE); CRYSTALS,URINE >50 Triple Phos /LPF; METHADONE SCREEN, URINE NEGATIVE (NEGATIVE); METHAMPHETAMINES SCREEN, URINE NEGATIVE (NEGATIVE); OPIATE SCREEN, URINE NEGATIVE (NEGATIVE); OXYCODONE SCREEN, URINE NEGATIVE (NEGATIVE); RBC,URINE None Seen /HPF (0-5); SQUAMOUS EPITHELIAL CELL,UR NONE SEEN (<= Few); THC CANNABINOID SCREEN, URINE NEGATIVE (NEGATIVE); TRICYCLIC ANTIDEPRESSANT,URINE NEGATIVE (NEGATIVE); WBC,URINE 0-3 /HPF (0-5)
[2024-10-09] MEDS: TETANUS/DIPHTHERIA/PERTUSSIS 0.5 ML SYRINGE IM ONE (23:40)
--- NOTE | 2024-10-10 00:28 | ED Physician Documentation ---
ED Addendum Addendum Addendum: 79-year-old female signed out to me from outgoing [facility], please see their documentation for further detail. Review of echocardiogram report received December 14, 2023, EF 51%. Discussed with hospitalist service who graciously go to hospitalize. No other significant events to report. Discharge Plan Discharge Patient Disposition: 66 [facility] DC/Xfer Condition: Stable Clinical Impression: Head injury, Laceration Syncope Qualifiers: Syncope type: unspecified Qualified Code(s): R55 - Syncope and collapse Interventions: ED Admission Assessment Last Done: 10/10/24 01:43
[2024-10-10] MEDS ORDERED: LIDOCAINE TOP PRN (00:29)
--- OUTSIDE RECORDS SUMMARY | 2024-10-10 01:06 | EXTERNAL MEDICAL SUMMARY RPT | Continuity of Care Document ---
Author Organization [facility] Address [address] [place] [id number] Phone Results/Labs test date facility value unit [...] ranges. TROPONIN I HIGH SENSITIVITY 2024-10-06 15:15 [email or web address] 143.8 ng/l Critical result [facility]NI[facility] 143.8 pg/mL [...] unspecified is considered POSITIVE. GLUCOSE 2024-10-06 15:15 [email or web address] 150 mg/dl As of January 2023 testing method has changed, this may include reference ranges. AST ASPARTATE AMINOTRANSFERASE 2024-10-06 15:15 [email or web address] 16 iu/l As of January 2023 testing method has changed, this may include reference ranges. BUN - BLOOD UREA NITROGEN 2024-10-06 15:15 [email or web address] 16 mg/dl As of January 2023 testing method has changed, this may include reference ranges. LYMPHOCYTES # (AUTO) 2024-10-06 15:15 [email or web address] 2.0 10 3/ul (missing) GLOBULIN 2024-10-06 15:15 [email or web address] 2.8 g/dl (missing) CARBON DIOXIDE - CO2 2024-10-06 15:15 [email or web address] 24 mmol/l As of January 2023 testing method has changed, this may include reference ranges. PLT - PLATELET COUNT 2024-10-06 15:15 [email or web address] 250 10 3/ul (missing) MEAN CORPUSCULAR HEMOGLOBIN 2024-10-06 15:15 [email or web address] 28.7 pg (missing) POTASSIUM 2024-10-06 15:15 [email or web address] 3.4 mmol/l As of January 2023 testing method has changed, this may include reference ranges. NEUTROPHILS # (AUTO) 2024-10-06 15:15 [email or web address] 3.6 10 3/ul (missing) MEAN CORPUSCULAR HGB CONC 2024-10-06 15:15 [email or web address] 33.2 g/dl (missing) ALKALINE PHOSPHATASE 2024-10-06 15:15 [email or web address] 38 iu/l As of January 2023 testing method has changed, this may include reference ranges. ALBUMIN 2024-10-06 15:15 [email or web address] 4.1 g/dl As of January 2023 testing method has changed, this may include reference ranges. RED BLOOD COUNT 2024-10-06 15:15 [email or web address] 4.91 10 6/ul (missing) HCT - HEMATOCRIT 2024-10-06 15:15 [email or web address] 42.5 % (missing) BNP - B-NATRIURETIC PEPTIDE 2024-10-06 15:15 [email or web address] 464 pg/ml (missing) WHITE BLOOD COUNT 2024-10-06 15:15 [email or web address] 6.4 x10 3/ul (missing) TOTAL PROTEIN 2024-10-06 15:15 [email or web address] 6.9 g/dl As of January 2023 testing method has changed, this may include reference ranges. GFR - MDRD 2024-10-06 15:15 [email or web address] 69 (missing) Social History date description facility
[2024-10-10] MEDS ORDERED: MELATONIN 3 MG TABLET PO PRN (01:28)
[2024-10-10] MEDS ORDERED: BENZONATATE 100 MG CAPSULE PO PRN (01:28)
[2024-10-10] MEDS ORDERED: MORPHINE 10 MG/ML VIAL IVP PRN (01:28)
[2024-10-10] MEDS ORDERED: ONDANSETRON 4 MG/2 ML VIAL IVP PRN (01:28)
--- NOTE | 2024-10-10 01:30 | HISTORY & PHYSICAL EXAMINATION ---
Chief Complaint Chief Complaint Chief Complaint: syncope, fall History of Present Illness History of Present Illness HPI Comment/Other: pt brought to hospital d/t having syncopal episode at home while bringing in groceries to her house. this occurred in last 24 hours. pt states she was otherwise in her usual state of health. she remembers bringing in her groceries and waking up on the ground. per , he had heard a loud thud and called out her name, and she immediately responded, so she was not "out" for very long. pt denies chest pain, dizziness, sob, ams prior to episode, and denies any current chest pain, sob, fevers, chills, n/v/d. apart from headache d/t fall on her face/head, she denies any other symptoms. no dysuria or hematuria. h/o chf with last ef 51% last year. denies h/o mi or stents. denies h/o cva or tia. Review of Systems Status of ROS: 10 or more systems reviewed and unremarkable except as noted in history and below [facility] Active Problems All Active Problems (Updated 10/10/24 @ 02:35 by Angel Sandoval DO) Laceration (Acute) Head injury (Acute) Syncope (Acute) Congestive heart failure (Acute) Social History Social History Smoking Status: Never smoker Relationship: Do you feel safe in your home environment?: Yes Suffered physical, verbal, emotional, or financial abuse?: No History of Abuse: No POLST Patient has POLST: No Meds/Allgy Home Medications Ambulatory Orders Medication Instructions Recorded Confirmed aspirin 81 mg tablet,delayed 81 mg PO DAILY 08/19/13 08/19/13 release (Aspir-) carvedilol 3.125 mg tablet 0 mg PO BID 08/19/13 08/19/13 glipizide 5 mg tablet 0 mg PO 0730 08/19/13 08/19/13 insulin glargine 100 unit/mL 16 unit subcut HS 08/19/13 08/19/13 subcutaneous solution (Lantus U-100 Insulin) spironolactone 25 mg tablet 0 mg PO DAILY 08/19/13 08/19/13 tolterodine 1 mg tablet (Detrol) 1 mg PO DAILY 08/19/13 08/19/13 acetaminophen 650 mg 650 mg PO Q8HR #30 tabs 03/30/22 tablet,extended release (Pain Relief (acetaminophen)) lidocaine 5 % topical patch 1 patch topical DAILY PRN pain #10 03/30/22 patches Allergies Allergies Allergy/AdvReac Type Severity Reaction Status Date / Time Bpzxack-UYQ-SnD Reductase Allergy Anaphylaxis Verified 10/06/24 14:55 Inhibitor (Ywjfima-Gmj-Ziu Reductase Inhibitor) Sulfa (Sulfonamide Allergy vomiting Verified 10/06/24 14:55 Antibiotics) Exam Constitutional normal general appearance and no apparent distress HENMT brusing on head/face, with forehead laceration noted along R side Eyes EOMs intact bilaterally Neck/C-Spine cervical full ROM noted Chest inspection of chest normal Respiratory no retractions and no use of accessory muscles details per ed charting Cardiovascular details per ed charting Extremities normal to inspection Neurology hook tender II-XII intact, no focal motor deficit noted, speech normal and GCS 15 Psychiatry mental status grossly normal, oriented x3, thought process normal, cooperative and affect normal Conclusion/Plan Problem List (1) Syncope: Qualifiers: Syncope type: unspecified Qualified Code(s): R55 - Syncope and collapse Plan pt with - syncopal episode with fall + facial injury head imaging neg for acute pathology no focal neuro deficits unclear etiology, though likely cardiogenic syncope requiring cardiac w/u (below) neuro checks, carotid dopplers, 2d echo nstemi w/o chest pain elevated trop, will continue trend per cardiology from [place] --> ok to keep pt here if ef > 35% ef from last year 51%, will check 2d echo pt would benefit from stress test as well continue home cardiac meds h/o chf w/o acute exacerbation at this time ef from 2023 around 51%, repeat 2d echo bnp 616 f/u labs, neuro status further orders per clinical course Lab Results 10/09/24 11:55 10/09/24 11:55
[2024-10-10 05:22] LABS: BASOPHILS # (AUTO) 0.1 10^3/uL (0.0-0.1); BASOPHILS % (AUTO) 0.7 %; EOSINOPHILS # (AUTO) 0.3 10^3/uL (0.0-0.7); EOSINOPHILS % (AUTO) 3.5 %; HCT - HEMATOCRIT 38.5 % (37.0-47.0); HGB - HEMOGLOBIN 12.8 g/dL (12.0-16.0); LYMPHOCYTES # (AUTO) 2.9 10^3/uL (1.5-3.5); LYMPHOCYTES % (AUTO) 35.2 %; MEAN CORPUSCULAR HEMOGLOBIN 28.4 pg (27.0-31.0); MEAN CORPUSCULAR HGB CONC 33.2 g/dL (32.0-36.0); MEAN CORPUSCULAR VOLUME 85.6 fL (81.0-99.0); MEAN PLATELET VOLUME 10.3 fL (7.9-10.8); MONOCYTES # (AUTO) 0.7 10^3/uL (0.0-1.0); MONOCYTES % (AUTO) 8.3 %; NEUTROPHILS # (AUTO) 4.2 10^3/uL (1.5-6.6); NEUTROPHILS % (AUTO) 52.1 %; PLT - PLATELET COUNT 238 10^3/uL (130-450); RED CELL DISTRIBUTION WIDTH 13.2 % (12.0-15.0); WHITE BLOOD COUNT 8.1 x10^3/uL (4.8-10.8)
[2024-10-10 05:40] LABS: ALBUMIN 3.8 g/dL (3.2-5.5); ALBUMIN/GLOBULIN RATIO 1.7 (1.0-2.2); BILIRUBIN,TOTAL 0.5 mg/dL (0.2-1.0); CHOLESTEROL 164 mg/dL; CREATININE 0.8 mg/dL (0.6-1.3); HDL CHOLESTEROL 41 mg/dL; LDL CHOLESTEROL,CALCULATED 98 mg/dL; LDL/HDL RATIO 2.4 (<4.4); MAGNESIUM 1.9 mg/dL (1.7-2.3); POTASSIUM 3.6 mmol/L (3.5-4.5); TRIGLYCERIDES 125 mg/dL; VLDL CHOLESTEROL 25 mg/dL
[2024-10-10 05:48] LABS: THYROID STIMULATING HORMONE 0.76 uIU/mL (0.34-5.60)
[2024-10-10 08:07] VITALS: TEMP 97.7
[2024-10-10] MEDS: SPIRONOLACTONE 25 MG TABLET PO SCH (08:56)
[2024-10-10] MEDS: carvediloL 3.125 MG TABLET PO SCH (08:56)
[2024-10-10] MEDS: SOLIFENACIN SUCCINATE 5 MG TABLET PO SCH (08:56)
[2024-10-10] MEDS: ASPIRIN EC 81 MG TABLET PO SCH (08:56)
[2024-10-10] MEDS: ENOXAPARIN 40 MG/0.4 ML SYRINGE SUBQ SCH (08:57)
[2024-10-10] MEDS ORDERED: SPIRONOLACTONE 25 MG TABLET PO SCH (09:00)
[2024-10-10] MEDS ORDERED: carvediloL 3.125 MG TABLET PO SCH (09:00)
[2024-10-10] MEDS: ACETAMINOPHEN 325 MG TABLET PO PRN (10:05)
--- NOTE | 2024-10-10 10:38 | PHARMACY PROGRESS NOTE ---
Best Possible Medication History Admit Date and Time: 10/10/24 0042 Home Medications Medication Instructions Recorded Confirmed Type aspirin 81 mg tablet,delayed 81 mg PO DAILY 08/19/13 10/10/24 History release (Aspir-) spironolactone 25 mg tablet 25 mg PO DAILY 08/19/13 10/10/24 History acetaminophen 650 mg 650 mg PO Q8HR #30 tabs 03/30/22 10/10/24 Rx tablet,extended release (Pain Relief (acetaminophen)) carvedilol 6.25 mg tablet 6.25 mg PO BID 10/10/24 10/10/24 History citalopram 40 mg tablet 40 mg PO DAILY 10/10/24 10/10/24 History fenofibrate 160 mg tablet 160 mg PO DAILY 10/10/24 10/10/24 History gabapentin 100 mg capsule 100 mg PO HS 10/10/24 10/10/24 History losartan 50 mg tablet 50 mg PO DAILY 10/10/24 10/10/24 History oxybutynin chloride 10 mg 20 mg PO DAILY 10/10/24 10/10/24 History tablet,extended release 24 hr Processed by: Pharmacy Medications reviewed in ED?: Yes Medication History completed: Yes Patient Interview: Completed Secondary Source(s): Pharmacy records and Insurance records [facility] Statement: As the person ultimately responsible for medication therapy, providers are able to order a medication from an existing home medication list in [facility] via the "Reconcile Routine" prior to Confirmation of that medication by client support manager. Such practice is discouraged except when the physician, in their clinical judgment, deems that a medical need exists for a medication without regard to previous use.
--- NOTE | 2024-10-10 12:10 | ECHO Report ---
Version: 1 Study ID: [id number] [id number] Adult Echocardiogram Report Name: GABE SMITH Study Date: 10/10/2024, 8: 56 AM BP : 160 / 83 mmHg Patient Location: [facility]^[id number] HR: 56 bpm : 1945 (MM/DD/YYYY) Gender: Female He ight: 67 in Age: 79 Years Weight: 143.3 lb Reason For Study: nstemi History: Syncope and fall, elevated troponin Procedure: A complete two-dimensional transthoracic echocardiogram was performed (2D, M-mode, Doppler and color flow Doppler). Indication: Evaluate cardiac and valve function. The study was done with the patient in the supine po sition, due to inability to lie on the left side. The underlying rhythm was bradycardia. Interpretation Summary 1. The left ventricle is mildly dilated. The visual left ventricular ejection fraction is estimated a t 25 to 30%. There is severe global hypokinesis of the left ventricle 2. The right ventricle is normal size and function. 3. There is moderate mitral regurgitation. 4. Pulmonary hypertension is present. Left Ventricle: The left ventricle is mildly dilated. The left ventricular indexed volume is 72ml/m2. The left ventri cular apex is not well visualized. Prominent trabeculations are seen in the left ventricular apex. Global left ventricu lar systolic function is severely decreased. The visual left ventricular ejection fraction is estimated at 25 to 3 0%. There is severe global hypokinesis of the left ventricle. The overall diastolic pattern is most consistent with impai red left ventricular relaxation with elevated filling pressures. Grade I. Right Ventricle: The right ventricle is normal size. The basal right ventricular diameter measured from a right ventri cular focused view is 3.8 cm. The right ventricular systolic function is normal. The tricuspid annular plane systolic ex cursion (TAPSE) measurement is 1.9 cm. Aortic Valve: The aortic valve is mildly thickened. Aortic valve sclerosis is present without stenosis. The aortic valve structure is not well visualized. Mitral Valve: The mitral valve leaflets are mildly thickened. Mitral leaflet motion is decreased secondary to tenti ng from left ventricular enlargement. There is moderate mitral regurgitation. Tricuspid Valve: The tricuspid valve is normal in structure and function. Mild tricuspid regurgitation present. Pulmonic Valve: The pulmonic valve is normal in structure and function. Trace pulmonic valvular regurgitation is pres ent. Left Atrium: The left atrium is severely dilated. The left atrial volume indexed to body surface area is 62 ml/m2. This refers to the maximal volume measured prior to mitral valve opening. Right Atrium: The right atrium is mildly dilated. The inferior vena cava is normal in diameter (<2.1cm) but collaps e <50% with sniff (estimated right atrial pressure 5-10mmHg). Atrial Septum: The interatrial septum is shifted rightward, consistent with elevated left atrial pressure. Aorta: The diameter of the ascending aorta is 3.5 cm. The sinuses of Valsalva are not well visualized. Pulmonary Artery: The pulmonary artery systolic pressure, calculated from a peak tricuspid regurgitant velocity in conj unction with an estimated right atrial pressure, is 44mmHg. Pulmonary hypertension is present. Pericardium/Pleural Space: There is no pericardial effusion. CPT Codes: 20634/[id number]: Transthoracic Echo with Spectral and Color Doppler. Doppler Measurements & Calculations Ao max P.9 mmHg Ao V2 max: 131.3 cm/sec LV V1 max: 86.4 cm/sec LV V1 max P.0 mmHg LV V1 mean: 64.3 cm/sec LV V1 mean P.82 mmHg LV V1 VTI: 20.8 cm MV A max miguelito: 117.8 cm/sec MV dec time: 0.33 sec MV DVI-pr_phl: 0.75 MV E max miguelito: 88.7 cm/sec Pulm A Revs Dur: 0.17 sec Pulm A Revs Miguelito: 31.0 cm/sec RAP systole: 10.0 mmHg TR max P.2 mmHg TR max miguelito: 292.5 cm/sec MMode/2D Measurements & Calculations EDV(MOD-sp4): 128.9 ml EF (est.): 28.2 % ESV(MOD-sp4): 64.4 ml Heart Rate: 56.0 BPM Height (metric): 170.2 cm IVSd: 1.44 cm LAV(MOD-bp): 108.6 ml LAV(MOD-bp) Indexed: 61.9 ml/m LAV(MOD-sp2): 102.0 ml LAV(MOD-sp4): 109.5 ml LVIDd: 5.2 cm LVIDs: 4.5 cm LVLd ap4: 9.0 cm LVLs ap4: 8.8 cm LVPWd: 0.88 cm RA A4Cs_phl: 19.8 cm Systolic Pressure: 160.0 mmHg TAPSE_phl: 1.93 cm Other Measurements & Calculations Ao V2 max: 131.3 cm/sec BMI: 22.4 kilograms/m BSA: 1.75 m BSA([facility]): 1.76 m Diastolic Pressure: 83.0 mmHg EDV(MOD-sp4): 128.9 ml EDV(Teich): 129.8 ml EF (est.): 28.2 % EF(MOD-sp4): 50.0 % EF(Teich): 29.4 % ESV(MOD-sp4): 64.4 ml ESV(Teich): 91.6 ml FS: 13.9 % Heart Rate: 56.0 BPM Height (metric): 170.2 cm IVSd: 1.44 cm LAV(MOD-bp): 108.6 ml LAV(MOD-bp) Indexed: 61.9 ml/m LAV(MOD-sp2): 102.0 ml LAV(MOD-sp4): 109.5 ml LV V1 max: 86.4 cm/sec LV V1 mean: 64.3 cm/sec LV V1 mean P.82 mmHg LVIDd: 5.2 cm LVIDs: 4.5 cm LVLd ap4: 9.0 cm LVLs ap4: 8.8 cm LVPWd: 0.88 cm MV A max miguelito: 117.8 cm/sec MV dec time: 0.33 sec MV DVI-pr_phl: 0.75 MV E max miguelito: 88.7 cm/sec MV E/A: 0.75 Pulm A Revs Dur: 0.17 sec Pulm A Revs Miguelito: 31.0 cm/sec RA A4Cs_phl: 19.8 cm RAP systole: 10.0 mmHg RVSP(TR): 44.2 mmHg SV(MOD-sp4): 64.4 ml Systolic Pressure: 160.0 mmHg TAPSE_phl: 1.93 cm TR max P.2 mmHg TR max miguelito: 292.5 cm/sec TV max P.2 mmHg Weight (metric): 65.0 kg Lat E/e': 25.1 Med E/e': 22.7 MD Danielle Duarte 10/10/2024, 12: 09 PM Ordering Physician: Angel Sandoval Referring Physician: Annabella Diamond Performed By: Monica Peñaloza RDCS
[2024-10-10 12:11] LABS: ESTIMATED AVERAGE GLUCOSE 163 mg/dL (70-100); HEMOGLOBIN A1c% 7.3 % (4.27-6.07)
--- NOTE | 2024-10-10 12:56 | PT Plan of Care ---
PT Plan of Care Physical Therapy Plan of Care: Diagnosis Diagnosis syncope c fall & head injury Diagnosis NSTEMI Referring Provider Angel Sandoval Patient Status Inpatient Chief Complaint Chief Complaint weakness, n/v, fatigue Onset of Chief Complaint OCULARIST Assessment Assessment Pt is a pleasant 79yo F referred for PT eval d/t fall at home c head injury. Found to have NSTEMI and admitted with syncopal fall. Pt lives at home with , 3STE, 14 stairs to bedroom and is indep at baseline. 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 Upon PT eval pt is hypertensive but denies adverse symptoms during functional mobility. Pt presents with mild confusion and distractibility but able to follow cues appropriately. Denies CASTILLO, vision changes or other concussion related symptoms however does endorse daily emesis for 1-2 weeks and no BM x3 days. RN present and aware of this report; passed on to hospitalist. Reports 6/10 leg pain but conversational and willing to participate throughout mobility assessment. Requires CGA overall for transfers and minAx1 and FWW for short distance ambulation to bathroom. Pt may benefit from skilled PT given above impairments and presenting far below indep baseline. When medically clear PT rec dc to SNF as pt is a high fall risk, far below baseline and will benefit from short term rehab to maximize functional indep. Goals Improve bed mobility to: Modified Independent Improve supine to sit to: Modified Independent Improve sit to stand to: Modified Independent Improve pivot transfer ability Modified Independent to: Improve sit to supine to: Modified Independent Improve gait ability to: CGA Assistive Device Used: Front Wheeled Walker,Single Point Cane PT Plan of Care Frequency 1-2x/day Duration Until goals are met Discharge Recommendations Discharge Location [facility] Equipment Recommended Front wheeled walker,Cane Transport Needs at Discharge Wheelchair van
--- NOTE | 2024-10-10 14:28 | PHARMACY PROGRESS NOTE ---
Best Possible Medication History Admit Date and Time: 10/10/24 0042 Home Medications Medication Instructions Recorded Confirmed Type aspirin 81 mg tablet,delayed 81 mg PO DAILY 08/19/13 10/10/24 History release (Aspir-) spironolactone 25 mg tablet 25 mg PO DAILY 08/19/13 10/10/24 History acetaminophen 650 mg 650 mg PO Q8HR #30 tabs 03/30/22 10/10/24 Rx tablet,extended release (Pain Relief (acetaminophen)) carvedilol 6.25 mg tablet 6.25 mg PO BID 10/10/24 10/10/24 History citalopram 40 mg tablet 40 mg PO DAILY 10/10/24 10/10/24 History fenofibrate 160 mg tablet 160 mg PO DAILY 10/10/24 10/10/24 History gabapentin 100 mg capsule 100 mg PO HS 10/10/24 10/10/24 History losartan 50 mg tablet 50 mg PO DAILY 10/10/24 10/10/24 History oxybutynin chloride 10 mg 20 mg PO DAILY 10/10/24 10/10/24 History tablet,extended release 24 hr Processed by: Pharmacy Medications reviewed in ED?: No Medication History completed: Yes Patient Interview: Pt unable to participate Secondary Source(s): Pharmacy records and Insurance records [facility] Statement: As the person ultimately responsible for medication therapy, providers are able to order a medication from an existing home medication list in [facility] via the "Reconcile Routine" prior to Confirmation of that medication by windows server support technician. Such practice is discouraged except when the physician, in their clinical judgment, deems that a medical need exists for a medication without regard to previous use.
--- NOTE | 2024-10-10 17:34 | Discharge Summary ---
Discharge Summary Admit Date: 10/10/24 Discharge Date: 10/10/24 Discharging Provider: Luis Angel Ferrera NP Code Status: Do Not Attempt Resuscitation Discharge Facility Name: [facility] DIAGNOSES Admission Diagnoses: Syncope Non-STEMI Discharge Diagnoses with Status of Each Condition: Syncopeactive Non-STEMIactive HPI History of Present Illness: pt brought to hospital d/t having syncopal episode at home while bringing in groceries to her house. this occurred in last 24 hours. pt states she was otherwise in her usual state of health. she remembers bringing in her groceries and waking up on the ground. per , he had heard a loud thud and called out her name, and she immediately responded, so she was not "out" for very long. pt denies chest pain, dizziness, sob, ams prior to episode, and denies any current chest pain, sob, fevers, chills, n/v/d. apart from headache d/t fall on her face/head, she denies any other symptoms. no dysuria or hematuria. h/o chf with last ef 51% last year. denies h/o mi or stents. denies h/o cva or tia. HOSPITAL COURSE Hospital Course: Patient was admitted into the hospital and repeat echocardiogram was performed which showed EF 25 to 30%, severe global hypokinesis of left ventricle, moderate mitral regurgitation, pulmonary hypertension. As she is currently established with [facility] cardiology, we reached out to the [facility] transfer center and she is being transferred tonight and will undergo EP workup ALLERGIES Allergies Allergy/AdvReac Type Severity Reaction Status Date / Time Dgiqjoj-BCG-JtN Reductase Allergy Anaphylaxis Verified 10/06/24 14:55 Inhibitor (Kbjwhxt-Ytz-Yzo Reductase Inhibitor) Sulfa (Sulfonamide Allergy vomiting Verified 10/06/24 14:55 Antibiotics) MEDICATIONS Ambulatory Orders Medication Instructions Recorded Confirmed aspirin 81 mg tablet,delayed 81 mg PO DAILY 08/19/13 10/10/24 release (Aspir-) spironolactone 25 mg tablet 25 mg PO DAILY 08/19/13 10/10/24 acetaminophen 650 mg 650 mg PO Q8HR #30 tabs 03/30/22 10/10/24 tablet,extended release (Pain Relief (acetaminophen)) carvedilol 6.25 mg tablet 6.25 mg PO BID 10/10/24 10/10/24 citalopram 40 mg tablet 40 mg PO DAILY 10/10/24 10/10/24 fenofibrate 160 mg tablet 160 mg PO DAILY 10/10/24 10/10/24 gabapentin 100 mg capsule 100 mg PO HS 10/10/24 10/10/24 losartan 50 mg tablet 50 mg PO DAILY 10/10/24 10/10/24 oxybutynin chloride 10 mg 20 mg PO DAILY 10/10/24 10/10/24 tablet,extended release 24 hr PHYSICAL EXAM AT DISCHARGE Vital Signs: Vital Signs x48h Temp Pulse Pulse Pulse Pulse Pulse Resp 10/10/24 15:58 36.5 C 60 17 10/10/24 13:28 36.5 C 53 L 16 10/10/24 10:00 60 66 109 H 68 BP BP BP BP BP Pulse Ox 10/10/24 15:58 149/65 H 96 10/10/24 13:28 150/64 H 99 10/10/24 10:00 158/97 H 138/71 H 156/90 H 152/75 H General Appearance: positive No acute distress, Alert and Other (Bruising on right periorbit) Eyes Bilateral: positive Normal inspection ENT: positive Other Neck: positive Nml inspection Respiratory: positive Chest non-tender Cardiovascular: positive Regular rate & rhythm and Systolic murmur Abdomen: positive Non-tender Skin: positive Color nml and Other (Bruising around right eye) Extremities: positive Non-tender Neurologic/Psychiatric: positive Oriented x3 LABS 10/10/24 05:04 10/10/24 05:04 FOLLOW UP Follow Up: As directed at next facility TIME SPENT Time Spent in Discharge (Minutes): 25 Discharge Plan Discharge Patient Disposition: 02 Transfer Acute Care Hosp Condition: Stable Prescriptions: No Action spironolactone 25 MG tablet 25 mg PO DAILY Patient Comments: unknown dose aspirin [Aspir-81] 81 MG tablet,delayed release (DR/EC) 81 mg PO DAILY acetaminophen [Pain Relief (acetaminophen)] 650 MG tablet extended release 650 mg PO Q8HR Qty: 30 0RF losartan 50 mg tablet 50 mg PO DAILY Patient Comments: TAKE 1 TABLET BY MOUTH ONCE DAILY citalopram 40 mg tablet 40 mg PO DAILY Patient Comments: TAKE 1 TABLET BY MOUTH ONCE DAILY oxybutynin chloride 10 mg tablet extended release 24hr 20 mg PO DAILY Patient Comments: TAKE 2 TABLETS BY MOUTH ONCE DAILY gabapentin 100 mg capsule 100 mg PO HS Patient Comments: TAKE 1 CAPSULE BY MOUTH EVERY DAY AT BEDTIME fenofibrate 160 mg tablet 160 mg PO DAILY Patient Comments: TAKE 1 TABLET BY MOUTH ONCE DAILY carvedilol 6.25 mg tablet 6.25 mg PO BID Patient Comments: TAKE 1 TABLET BY MOUTH TWICE DAILY Print Language: Divehi Stand Alone Forms: PCP List Follow-up Care: Phyllis Mejia MD [Primary Care Provider] -
[2024-10-10] MEDS: MORPHINE 2 MG/ML CARPUJECT IVP PRN (18:48)
[2024-10-10 19:42] VITALS: BP 162/73; O2SAT 97
--- NOTE | 2024-10-10 20:57 | Ultrasound Report ---
PROCEDURE: US Carotid Doppler Complete INDICATIONS: syncope TECHNIQUE: Color and pulse Doppler interrogation was performed of both carotid systems, with image documentation and velocity measurements. COMPARISON: Brain MRI 10/09/2024. FINDINGS: Right side: Common carotid artery peak systolic velocity: 50 cm/sec. Internal carotid artery peak systolic velocity: 74 cm/sec. Internal carotid artery end diastolic velocity: 12 cm/sec. External carotid artery peak systolic velocity: 57 cm/sec. ICA/CCA peak systolic ratio: 1.5. Kay scale imaging description: Mild atherosclerotic plaque. Percent internal carotid artery stenosis: Less than 50 percent stenosis. Vertebral artery: Flow direction is antegrade. Left side: Common carotid artery peak systolic velocity: 61 cm/sec. Internal carotid artery peak systolic velocity: 101 cm/sec. Internal carotid artery end diastolic velocity: 18 cm/sec. External carotid artery peak systolic velocity: 90 cm/sec. ICA/CCA peak systolic ratio: 1.65. Kay scale imaging description: Moderate atherosclerotic plaque, particularly at the distal CCA. Percent internal carotid artery stenosis: Less than 50 percent stenosis. Vertebral artery: Flow direction is antegrade. IMPRESSION: 1. In the right internal carotid artery, there is less than 50 percent stenosis based on peak systoli c velocity criteria. 2. In the left internal carotid artery, there is less than 50 percent stenosis based on peak systolic velocity criteria. 3. Antegrade blood flow within the right vertebral artery. 4. Antegrade blood flow within the left vertebral artery. The estimate of stenosis included in the report of the imaging study was calculated using the PSYCHIATRIC-end orsed standards of carotid artery stenosis. Reviewed by: Dieudonne Manjarrez MD on 10/10/2024 8:55 PM PDT Approved by: Dieudonne Manjarrez MD on 10/10/2024 8:55 PM PDT Station ID: [id number]
[2024-10-10] MEDS ORDERED: INSULIN GLARGINE-YFGN 300 UNIT/3 ML PEN SUBQ SCH (21:00)
== END 2024-10-10 19:45 | disposition short-term general hospital (02) | DRG 282 ==
LOC: ED 11:32 → MS2 10-10 00:42
PROVIDERS: ADMIT Student in an Organized Health Care Education/Training Program; ATTEND Student in an Organized Health Care Education/Training Program
DX: M25.552 Pain in left hip; I27.20 Pulmonary hypertension, unspecified; R47.81 Slurred speech; I34.0 Nonrheumatic mitral (valve) insufficiency; W19.XXXA Unspecified fall, initial encounter; S01.81XA Laceration without foreign body of other part of head, initial encounter; Z79.82 Long term (current) use of aspirin; R55 Syncope and collapse; I44.7 Left bundle-branch block, unspecified; R79.89 Other specified abnormal findings of blood chemistry; I21.4 Non-ST elevation (NSTEMI) myocardial infarction; Y92.009 Unspecified place in unspecified non-institutional (private) residence as the place of occurrence of the external cause; S09.93XA Unspecified injury of face, initial encounter; M25.511 Pain in right shoulder; M25.512 Pain in left shoulder; I50.9 Heart failure, unspecified; M79.604 Pain in right leg; Z79.899 Other long term (current) drug therapy